=== PATIENT | female | born 1960 | race African-American/Black ===

== ENCOUNTER → 2016-12-27 | Outpatient (CLI) | payer OTHER ==
[~2016-12-27] VITALS: Ht 172.7 cm; Wt 77.1 kg
[~2016-12-27] MED LIST: DOXIL IV; ENOXAPARIN30 MG/0.3 SUBQ; ESCITALOPRAM OX10 MG PO; FEVER REDUCER120 MG RECTAL; GENTAMICIN 0.1%15 G2 TOP; HYDROCHLOROTH12.5 M1 PO; HYDROCHLOROTH12.5 MG PO; HYDROCHLOROTHIA25 M2 PO; HYDROCODON-ACE1 EAC7; HYDROCODONE-ACE15 ML PO; HYDROCODONE-AP1 EAC6 PO; IBUPROFEN 600600 M1 PO; INVOKANA300 MG PO; KEFLEX500 MG PO; METFORMIN HCL500 MG PO; METOPROLOL TART25 MG PO; MIRALAX255 GM PO; MULTIVITAMINS PO; MULTIVITAMINS1 EAC7 PO; MYLICON DR40 MG/0.1 PO; OMEPRAZOLE 20 M20 M1 PO; REGLAN 10 MG TA10 M1 PO; SENEXON-S TABL1 EACH; SLEEP AIDE PO; TAXOL 30 M30 MG/5 M1 IV; TYLENOL EX-STR500 M2 PO; UNICOMPLEX M TA1 TA1 PO; VITAMIN C100 MG PO; VITAMIN D 5050000 I1 PO; VITAMIN E400 UNIT PO; ZOFRAN ODT4 MG DISSOLVE
[2016-12-27 09:59] VITALS: BP 129/85
== END | disposition home or self-care (01) ==
LOC: SPEC 09:29
DX: T82.594A Other mechanical complication of infusion catheter, initial encounter (principal); Y82.8 Other medical devices associated with adverse incidents

== ENCOUNTER → 2017-02-10 | Outpatient (CLI) | payer OTHER ==
[2017-02-10 11:41] VITALS: BP 99/59
== END | disposition home or self-care (01) ==
LOC: SPEC 11:08
DX: T80.218A Other infection due to central venous catheter, initial encounter (principal); C56.9 Malignant neoplasm of unspecified ovary; I10 Essential (primary) hypertension; E11.9 Type 2 diabetes mellitus without complications; K21.9 Gastro-esophageal reflux disease without esophagitis; F41.9 Anxiety disorder, unspecified; Z87.891 Personal history of nicotine dependence; Z98.890 Other specified postprocedural states; Y83.8 Other surgical procedures as the cause of abnormal reaction of the patient, or of later complication, without mention of misadventure at the time of the procedure

== ENCOUNTER → 2017-02-17 | Outpatient (CLI) | payer OTHER ==
[~2017-02-17] VITALS: Ht 172.7 cm; Wt 70.3 kg
[2017-02-17 09:49] VITALS: BP 97/66
[2017-02-17 09:58] LABS: HEMATOCRIT 34.9 % (37.0-47.0); HEMOGLOBIN 11.9 gm/dL (12.0-15.0); MCH 30.1 pg (26.0-34.0); MCHC 34.1 g/dL (28.0-37.0); MCV 88.1 fL (80.0-100.0); RBC 3.96 mil/uL (4.20-5.00); RDW 15.5 % (10.5-14.5); WBC 3.2 thou/uL (4.0-11.0)
[2017-02-17 10:04] LABS: CALCIUM 9.1 mg/dL (8.5-10.1); CREATININE 0.9 mg/dL (0.6-1.0)
[2017-02-17 10:12] LABS: APTT 28.9 Seconds (24.5-32.8); INR 1.1; PROTIME 11.1 Seconds (9.3-11.4)
== END | disposition home or self-care (01) ==
LOC: SPEC 09:26
PROVIDERS: Radiology Vascular & Interventional Radiology
DX: Z45.2 Encounter for adjustment and management of vascular access device (principal); C56.1 Malignant neoplasm of right ovary; C85.80 Other specified types of non-Hodgkin lymphoma, unspecified site; I10 Essential (primary) hypertension; E11.9 Type 2 diabetes mellitus without complications; J44.9 Chronic obstructive pulmonary disease, unspecified; F41.9 Anxiety disorder, unspecified; K21.9 Gastro-esophageal reflux disease without esophagitis; Z90.710 Acquired absence of both cervix and uterus; Z87.891 Personal history of nicotine dependence; Z98.890 Other specified postprocedural states

== ENCOUNTER → 2017-03-21 | Outpatient (CLI) | payer OTHER ==
[~2017-03-21] VITALS: Ht 172.7 cm; Wt 67.1 kg
[2017-03-21 11:20] VITALS: BP 107/678
[2017-03-21 11:44] LABS: PROTIME 10.2 Seconds (9.3-11.4)
== END ==
LOC: SPEC 06:23
PROVIDERS: Radiology Vascular & Interventional Radiology
DX: C54.1 Malignant neoplasm of endometrium (principal); F41.9 Anxiety disorder, unspecified; K21.9 Gastro-esophageal reflux disease without esophagitis; E11.9 Type 2 diabetes mellitus without complications; I10 Essential (primary) hypertension; Z87.891 Personal history of nicotine dependence

== ENCOUNTER 2017-06-26 23:03 | Emergency (ER) | payer OTHER ==
[~2017-06-26] VITALS: Ht 172.7 cm; Wt 68.0 kg
[2017-06-27 00:29] LABS: ABSOLUTE NEUTROPHILS 2.3 thou/uL (1.4-8.2); EOSINOPHILS 2.2 % (0.0-3.0); HEMATOCRIT 35.3 % (37.0-47.0); HEMOGLOBIN 12.1 gm/dL (12.0-15.0); LYMPHOCYTES 24.7 % (24.0-44.0); MCH 31.1 pg (26.0-34.0); MCHC 34.4 g/dL (28.0-37.0); MCV 90.4 fL (80.0-100.0); MONOCYTES 9.9 % (1.0-8.0); PLATELET COUNT 261 thou/uL (150-400); POLYS 62.2 % (36.0-66.0); RBC 3.91 mil/uL (4.20-5.00); RDW 14.8 % (10.5-14.5); WBC 3.6 thou/uL (4.0-11.0)
[2017-06-27 00:34] LABS: MANUAL DIFF NO
[2017-06-27 00:35] LABS: CALCIUM 9.5 mg/dL (8.5-10.1); CREATININE 0.7 mg/dL (0.6-1.0)
[2017-06-27 00:37] LABS: POTASSIUM 2.7 mmol/L (3.5-5.1)
[2017-06-27 00:41] LABS: ALBUMIN 3.2 g/dL (3.4-5.0); TOTAL BILIRUBIN 0.3 mg/dL (<0.1-1.0); TOTAL PROTEIN 7.1 g/dL (6.4-8.2)
[2017-06-27 00:43] LABS: URINE BILIRUBIN NEGATIVE (Negative); URINE BLOOD NEGATIVE (Negative); URINE COLOR YELLOW; URINE GLUCOSE-RANDOM* NEGATIVE (Negative); URINE KETONES NEGATIVE (Negative); URINE LEUKOCYTES-REFLEX NEGATIVE (Negative); URINE PROTEIN (DIPSTICK) NEGATIVE (Negative); URINE SPECIFIC GRAVITY <= 1.005 (1.003-1.035); URINE UROBILINOGEN 0.2 E.U./dl (0.2-1.0)
[2017-06-27] MEDS ORDERED: NORCO 5-325 TA1 EACH PO (01:19)
[2017-06-27] MEDS ORDERED: LEVSIN0.125 MG PO (01:19)
[2017-06-27] MEDS ORDERED: POTASSIUM20 PO ×2 (01:37→01:38)
== END 2017-06-27 02:22 | disposition home or self-care (01) ==
LOC: ER 23:03
PROVIDERS: Emergency Medicine
DX: K59.00 Constipation, unspecified (principal); F41.9 Anxiety disorder, unspecified; K21.9 Gastro-esophageal reflux disease without esophagitis; I10 Essential (primary) hypertension; E11.9 Type 2 diabetes mellitus without complications; Z98.890 Other specified postprocedural states; Z91.041 Radiographic dye allergy status; Z88.5 Allergy status to narcotic agent

== ENCOUNTER 2017-09-29 19:02 | Emergency (ER) | payer OTHER ==
[~2017-09-29] VITALS: Ht 170.2 cm; Wt 57.6 kg
[~2017-09-29 19:02] MED LIST changes: +GEMZAR1 GM IV; +LEVSIN0.125 MG PO; +NORCO 5-325 TA1 EACH PO; +POTASSIUM20 PO; +PROTONIX40 M1 PO; +XANAX 0.5 MG0.5 M1 PO; +ZANTAC 150MG T150 MG PO
[2017-09-29 20:46] LABS: HEMATOCRIT 25.8 % (37.0-47.0); HEMOGLOBIN 8.4 gm/dL (12.0-15.0); MCH 29.6 pg (26.0-34.0); MCHC 32.5 g/dL (28.0-37.0); MCV 91.1 fL (80.0-100.0); RBC 2.84 mil/uL (4.20-5.00); RDW 20.2 % (10.5-14.5)
[2017-09-29 20:50] LABS: WBC 47.1 thou/uL (4.0-11.0)
[2017-09-29 20:52] LABS: CALCIUM 8.9 mg/dL (8.5-10.1); CREATININE 1.1 mg/dL (0.6-1.0); POTASSIUM 3.9 mmol/L (3.5-5.1)
[2017-09-29 20:58] LABS: ALBUMIN 2.7 g/dL (3.4-5.0); TOTAL BILIRUBIN 0.2 mg/dL (<0.1-1.0); TOTAL PROTEIN 6.2 g/dL (6.4-8.2)
[2017-09-29] MEDS ORDERED: SENNA S TABLET1 EACH PO (21:52)
== END 2017-09-29 22:19 | disposition home or self-care (01) ==
LOC: ER 19:02
PROVIDERS: Emergency Medicine
DX: D72.829 Elevated white blood cell count, unspecified (principal); R10.84 Generalized abdominal pain; F41.9 Anxiety disorder, unspecified; K21.9 Gastro-esophageal reflux disease without esophagitis; E11.9 Type 2 diabetes mellitus without complications; I10 Essential (primary) hypertension; Z85.43 Personal history of malignant neoplasm of ovary; Z98.890 Other specified postprocedural states; Z91.041 Radiographic dye allergy status; Z88.5 Allergy status to narcotic agent

== ENCOUNTER 2017-10-12 00:30 | Emergency (ER) | payer OTHER ==
[~2017-10-12] VITALS: Ht 167.6 cm; Wt 53.1 kg
[~2017-10-12 00:30] MED LIST changes: +SENNA S TABLET1 EACH PO
[2017-10-12] MEDS ORDERED: MARINOL5 MG PO (01:00)
[2017-10-12 01:49] LABS: HEMATOCRIT 29.4 % (37.0-47.0); HEMOGLOBIN 9.4 gm/dL (12.0-15.0); MCH 29.7 pg (26.0-34.0); MCHC 32.1 g/dL (28.0-37.0); MCV 92.6 fL (80.0-100.0); PLATELET COUNT 182 thou/uL (150-400); RBC 3.18 mil/uL (4.20-5.00); RDW 24.4 % (10.5-14.5)
[2017-10-12 01:54] LABS: MANUAL DIFF YES; WBC 69.9 thou/uL (4.0-11.0)
[2017-10-12 02:02] LABS: CALCIUM 8.5 mg/dL (8.5-10.1); POTASSIUM 4.2 mmol/L (3.5-5.1)
[2017-10-12 02:03] LABS: MAGNESIUM 1.5 mg/dL (1.8-2.4)
[2017-10-12 02:25] LABS: ABSOLUTE NEUTROPHILS 67.8 thou/uL (1.4-8.2); ANISOCYTOSIS 3+; METAMYELOCYTES 1 %; POLYCHROMASIA OCCASIONAL; TOTAL CELL COUNT 200
[2017-10-12 03:21] LABS: URINE BILIRUBIN NEGATIVE (Negative); URINE BLOOD 2+ (Negative); URINE COLOR YELLOW; URINE GLUCOSE-RANDOM* NEGATIVE (Negative); URINE KETONES NEGATIVE (Negative); URINE PROTEIN (DIPSTICK) NEGATIVE (Negative); URINE UROBILINOGEN 0.2 E.U./dl (0.2-1.0)
[2017-10-12 03:30] LABS: URINE LEUKOCYTES-REFLEX 1+ (Negative)
[2017-10-12 03:35] LABS: SQUAMOUS 0-3 Few /LPF (0-3)
[2017-10-12 03:36] LABS: CASTS None Seen /LPF (None Seen); CRYSTALS None Seen /LPF (None Seen); URINE RBC 3-10 Few /HPF (0-2); URINE WBC-REFLEX 6-15 Few /HPF (0-5)
[2017-10-12] MEDS ORDERED: KRISTALOSE20 GM PO (05:09)
[2017-10-12] MEDS ORDERED: KEFLEX500 M1 PO (05:09)
== END 2017-10-12 06:20 | disposition home or self-care (01) ==
LOC: ER 00:30
PROVIDERS: Emergency Medicine
DX: K59.00 Constipation, unspecified (principal); N39.0 Urinary tract infection, site not specified; C83.00 Small cell B-cell lymphoma, unspecified site; F11.90 Opioid use, unspecified, uncomplicated; F41.9 Anxiety disorder, unspecified; K21.9 Gastro-esophageal reflux disease without esophagitis; E11.9 Type 2 diabetes mellitus without complications; I10 Essential (primary) hypertension; Z85.43 Personal history of malignant neoplasm of ovary; Z91.041 Radiographic dye allergy status; Z88.5 Allergy status to narcotic agent; Z87.891 Personal history of nicotine dependence